=== PATIENT | male | born 1935 | race Caucasian/White ===

== ENCOUNTER → 2016-11-23 | Outpatient (CLI) | payer MEDICARE, BC ==
[2016-11-23 09:39] LABS: ALANINE AMINOTRANSFERASE 26 U/L (21-72); ALBUMIN 4.1 g/dL (3.5-5.0); ALKALINE PHOSPHATASE 65 U/L (38-126); ASPARTATE AMINO TRANSFERASE 19 U/L (17-59); BILIRUBIN,DIRECT 0.3 mg/dL (0.0-0.4); BILIRUBIN,TOTAL 0.7 mg/dL (0.2-1.3); CHOLESTEROL 128.49 mg/dL (0-200); Direct HDL 58 mg/dL (>40); TOTAL PROTEIN 7.2 g/dL (6.3-8.2); TRIGLYCERIDES 78 mg/dL (<150)
[2016-11-23 09:50] LABS: DIRECT LDL 51 mg/dL (<100)
== END ==
LOC: OD 08:23
PROVIDERS: ATTEND Specialist
DX: E78.4 Other hyperlipidemia (principal); I10 Essential (primary) hypertension; I34.0 Nonrheumatic mitral (valve) insufficiency; I49.49 Other premature depolarization; R01.1 Cardiac murmur, unspecified; C61 Malignant neoplasm of prostate; I48.2 Chronic atrial fibrillation; Z79.899 Other long term (current) drug therapy; Z86.73 Personal history of transient ischemic attack (TIA), and cerebral infarction without residual deficits
CPT/HCPCS: 36415; 80061; 80076

== ENCOUNTER → 2017-01-01 | Outpatient (CLI) | payer MEDICARE, BC ==
--- NOTE | 2017-01-01 14:52 | WOMENS IMAGING REPORT ---
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 LIMITATIONS: None. FINDINGS: LUMBAR SPINE: The bone mineral density (BMD) measured from L1-L4 in the AP projection correlates with a T-score of -1.2, previously -1.8, which is osteopenia as defined by the World Health Organization. HIP: The bone mineral density (BMD) measured in the left hip correlates with a T-score of -1.3, previously -1.5, which is osteopenia as defined by the World Health Organization. IMPRESSION: 1. LUMBAR SPINE: OSTEOPENIA. 2. HIP: OSTEOPENIA. COMMENT: The World Health Organization defines low BMD as follows: T-score: Normal: Greater than -1.0 Osteopenia: Between -1.0 and -2.5 Osteoporosis: Less than -2.5 without fractures Established osteoporosis: Less than -2.5 with fractures In general, you may wish to consider: Diagnosis Treatment Follow-up DEXA Normal BMD Prevention 2-3 years Osteopenia Prevention/Therapy 1-2 years Osteoporosis Therapy Yearly TECHNICAL DOCUMENTATION: JOB ID: [id number] [employer]- All Rights Reserved
== END ==
LOC: WI 13:13
PROVIDERS: ATTEND Internal Medicine
DX: M81.8 Other osteoporosis without current pathological fracture (principal)
CPT/HCPCS: 77080

== ENCOUNTER 2018-03-30 08:48 | Inpatient (IN) | payer MEDICARE, BC ==
[2018-03-30] MEDS ORDERED: IPRATROPIUM/ALBUTEROL 0.5-2.5 MG/3 ML AMPUL NEB ONE (09:23)
[2018-03-30] MEDS ORDERED: ALBUTEROL SULFATE 0.083% NEB 2.5 MG/3 ML AMPUL NEB ONE (09:24)
--- NOTE | 2018-03-30 10:00 | ER Document Report ---
ED General - General Chief Complaint: Shortness Of Breath Stated Complaint: SHORTNESS OF BREATH Time Seen by Provider: 03/30/18 09:22 TRAVEL OUTSIDE OF THE [place] IN LAST 30 DAYS: No - HPI Notes: Patient is a 83-year-old male that presents to the emergency department for chief complaint of cough and shortness of breath. Patient has dementia and history was partially provided by his nurse and . They report he has had shortness of breath with coarse tight cough for the last month. Patient had initially seen his primary care doctor and received a shot of antibiotics which his states cleared up his symptoms. His symptoms then returned and he completed a course of azithromycin 1 week ago. Patient seem to be improved until yesterday when the cough returned. Patient was also complaining of some shortness of breath yesterday and his called EMS. EMS recommended transfer to the hospital yesterday which patient was refusing. Currently he denies any shortness of breath and chest pain. I cannot obtain further information on the chest pain he had yesterday he has the is not sure. She denies any history of cardiac stenting in the past but he does have congestive heart failure which he sees Dr. Marcus for. He he denies fevers , nausea, vomiting, abdominal pain, current chest pain, numbness and weakness. Patient has been using albuterol at home 3 times daily with some improvement of his shortness of breath. He does not wear home oxygen. Past Medical History: CHF, hypertension, hyperlipidemia, COPD, dementia CAD Past Surgical History: Reviewed in chart Social History: Denies drugs alcohol and tobacco Family History: Reviewed and noncontributory for presenting illness Allergies: Reviewed, see documented allergy list. REVIEW OF SYSTEMS: CONSTITUTIONAL : No fever No chills No diaphoresis No recent illness EENT: No vision changes No congestion No sore throat CARDIOVASCULAR: chest pain No palpitations RESPIRATORY: shortness of breath cough difficulty breathing GASTROINTESTINAL: No abdominal pain No nausea No vomiting No diarrhea GENITOURINARY: No dysuria No hematuria No difficulty urinating MUSCULOSKELETAL: No back pain No leg pain No arm pain SKIN: No rashes No lesions LYMPHATIC: No swollen, enlarged glands. NEUROLOGICAL: No lightheadedness No headache No weakness No paresthesias PSYCHIATRIC: No anxiety No depression PHYSICAL EXAMINATION: Vital signs reviewed, nursing noted reviewed. GENERAL: Well-appearing, well-nourished and in no acute distress. HEAD: Atraumatic, normocephalic. EYES: Eyes appear normal, extraocular movements intact, sclera anicteric, conjunctiva are normal. ENT: nares patent, oropharynx clear without exudates. Moist mucous membranes. NECK: Normal range of motion, supple without lymphadenopathy LUNGS: Diffuse rhonchi. No accessory muscle use. No respiratory distress. HEART: Regular rate and rhythm without murmurs ABDOMEN: Soft, nontender, normoactive bowel sounds. No rebound, guarding, or rigidity. No masses appreciated. EXTREMITIES: Nontender, good range of motion, +2 pitting edema bilateral lower extremities NEUROLOGICAL: No focal neurological deficits. Moves all extremities spontaneously Motor and sensory grossly intact on exam. PSYCH: Normal mood, normal affect. SKIN: Warm, Dry, normal turgor, no rashes or lesions noted on exposed skin - Related Data Allergies/Adverse Reactions: No Known Allergies Allergy (Verified 01/31/13 00:37) Past Medical History - Social History Smoking Status: Never Smoker Family History: Reviewed & Not Pertinent - Past Medical History Cardiac Medical History: Reports: Hx Atrial Fibrillation, Hx Hypercholesterolemia, Hx Hypertension - Immunizations Hx Diphtheria, Pertussis, Tetanus Vaccination: Yes Hx Pneumococcal Vaccination: 05/07/11 Review of Systems - Review of Systems Notes: Dictated Physical Exam - Vital signs Vitals: Temp Pulse Resp BP Pulse Ox 97.4 F 95 20 151/74 H 92 03/30/18 08:50 03/30/18 08:50 03/30/18 08:50 03/30/18 08:50 03/30/18 08:50 - Notes Notes: Dictated Course - Re-evaluation Re-evalutation: 03/30/18 09:59 Vitals reviewed. Nursing notes reviewed. Patient given albuterol and DuoNeb for his shortness of breath. 03/30/18 11:32 Patient reevaluated and is feeling better after breathing treatments. Chest x- ray shows a pneumonia. He does have a normal WBC count and lactic acid and sepsis is not suspected. Patient will be started on Levaquin for his pneumonia. His troponin is 0.033 which is still negative but borderline. Patient was given aspirin for his chest pain. His EKG showed atrial fibrillation with no acute ischemic changes. Patient will be admitted to telemetry for further monitoring. Case discussed with Dr. Gomez who accepted admission. Patient is stable at time of admission. Laboratory 03/30/18 03/30/18 03/30/18 09:50 09:50 09:50 WBC 7.1 RBC 3.84 L Hgb 12.6 L Hct 37.4 L MCV 97 MCH 32.9 MCHC 33.8 RDW 14.9 H Plt Count 182 Seg Neutrophils % 75.3 Lymphocytes % 9.9 L Monocytes % 13.1 H Eosinophils % 0.9 Basophils % 0.8 Absolute Neutrophils 5.4 Absolute Lymphocytes 0.7 Absolute Monocytes 0.9 Absolute Eosinophils 0.1 Absolute Basophils 0.1 Sodium 141.4 Potassium 3.9 Chloride 105 Carbon Dioxide 26 Anion Gap 10 BUN 21 H Creatinine 0.82 Est GFR ( Amer) > 60 Est GFR (Non-Af Amer) > 60 Glucose 98 Lactic Acid Calcium 8.9 Troponin I 0.033 NT-Pro-B Natriuret Pep 1740 H 03/30/18 09:50 WBC RBC Hgb Hct MCV MCH MCHC RDW Plt Count Seg Neutrophils % Lymphocytes % Monocytes % Eosinophils % Basophils % Absolute Neutrophils Absolute Lymphocytes Absolute Monocytes Absolute Eosinophils Absolute Basophils Sodium Potassium Chloride Carbon Dioxide Anion Gap BUN Creatinine Est GFR ( Amer) Est GFR (Non-Af Amer) Glucose Lactic Acid 1.0 Calcium Troponin I NT-Pro-B Natriuret Pep Chest X-Ray 03/30/18 09:55 IMPRESSION: Massive cardiomegaly Patchy airspace disease right lower lobe atelectasis versus pneumonia - Vital Signs Vital signs: Temp Pulse Resp BP Pulse Ox 97.4 F 95 20 151/74 H 92 03/30/18 08:50 03/30/18 08:50 03/30/18 08:50 03/30/18 08:50 03/30/18 08:50 - Laboratory Result Diagrams: 03/30/18 09:50 03/30/18 09:50 Laboratory results interpreted by me: 03/30/18 03/30/18 03/30/18 09:50 09:50 09:50 RBC 3.84 L Hgb 12.6 L Hct 37.4 L RDW 14.9 H Lymphocytes % 9.9 L Monocytes % 13.1 H BUN 21 H NT-Pro-B Natriuret Pep 1740 H - EKG Interpretation by Me Additional EKG results interpreted by me: 11/24/18 11:24 Interpreted by myself 1037: Atrial fibrillation, rate 91, PVCs, left anterior fascicular block, poor R wave progression, borderline prolonged QT Discharge - Discharge Clinical Impression: Pneumonia Qualifiers: Pneumonia type: due to unspecified organism Laterality: right Lung location: lower lobe of lung Qualified Code(s): J18.1 - Lobar pneumonia, unspecified organism Chest pain Qualifiers: Chest pain type: unspecified Qualified Code(s): R07.9 - Chest pain, unspecified Condition: Stable Disposition: ADMITTED INPATIENT Admitting Provider: Hospitalist Unit Admitted: Telemetry Referrals: ANSELMO FERGUSON MD [Primary Care Provider] - Follow up as needed
[2018-03-30 10:29] LABS: ABSOLUTE BASOPHILS # (AUTO) 0.1 10^3/uL (0.0-0.2); ABSOLUTE EOSINOPHILS # (AUTO) 0.1 10^3/uL (0.0-0.6); ABSOLUTE LYMPHOCYTES (AUTO) 0.7 10^3/uL (0.5-4.7); ABSOLUTE MONOCYTES (AUTO) 0.9 10^3/uL (0.1-1.4); ABSOLUTE NEUT (AUTO) 5.4 10^3/uL (1.7-8.2); BASOPHILS % (AUTO) 0.8 % (0-2); EOSINOPHILS % (AUTO) 0.9 % (0-6); HEMATOCRIT 37.4 % (37.9-51.0); HEMOGLOBIN 12.6 g/dL (13.5-17.0); LYMPHOCYTES % (AUTO) 9.9 % (13-45); MEAN CORPUSCULAR HEMOGLOBIN 32.9 pg (27.0-33.4); MEAN CORPUSCULAR HGB CONC 33.8 g/dL (32.0-36.0); MEAN CORPUSCULAR VOLUME 97 fl (80-97); MONOCYTES % (AUTO) 13.1 % (3-13); PLATELET COUNT 182 10^3/uL (150-450); RED BLOOD COUNT 3.84 10^6/uL (4.35-5.55); RED CELL DISTRIBUTION WIDTH 14.9 % (11.5-14.0); SEGMENTED NEUTROPHILS % (AUTO) 75.3 % (42-78); TOTAL CELLS COUNTED % (AUTO) 100 %; WHITE BLOOD COUNT 7.1 10^3/uL (4.0-10.5)
[2018-03-30 10:43] LABS: ANION GAP 10 (5-19); BLOOD UREA NITROGEN 21 mg/dL (7-20); CALCIUM 8.9 mg/dL (8.4-10.2); CARBON DIOXIDE 26 mmol/L (22-30); CHLORIDE 105 mmol/L (98-107); GLUCOSE 98 mg/dL (75-110); POTASSIUM 3.9 mmol/L (3.6-5.0); SODIUM 141.4 mmol/L (137-145)
--- NOTE | 2018-03-30 10:46 | RADIOLOGY REPORT (SQ) ---
EXAM DESCRIPTION: CHEST SINGLE VIEW COMPLETED DATE/TIME: 03/30/2018 10:12 am REASON FOR STUDY: sob COMPARISON: TWO-VIEW CHEST 12/03/2013 EXAM PARAMETERS: NUMBER OF VIEWS: One view. TECHNIQUE: Single frontal radiographic view of the chest acquired. RADIATION DOSE: NA LIMITATIONS: None. FINDINGS: LUNGS AND PLEURA: Patchy airspace disease at the right lung base, atelectasis versus pneum onia. Lungs are otherwise grossly clear. No pleural effusion. No pneumothorax MEDIASTINUM AND HILAR STRUCTURES: No masses. Contour normal. HEART AND VASCULAR STRUCTURES: Massive cardiomegaly BONES: No acute findings. HARDWARE: None in the chest. OTHER: No other significant finding. IMPRESSION: Massive cardiomegaly Patchy airspace disease right lower lobe atelectasis versus pneumonia TECHNICAL DOCUMENTATION: JOB ID: [id number] [employer]- All Rights Reserved Reading location - IP/workstation name: [email or web address]
[2018-03-30 10:55] LABS: TROPONIN I 0.033 ng/mL
[2018-03-30] MEDS ORDERED: ASPIRIN 81 MG TABLET, CHEWABLE PO ONE (11:25)
[2018-03-30 11:42] LABS: ARTERIAL BLOOD BASE EXCESS 1.6 mmol/L; ARTERIAL BLOOD H2CO3 1.17 mmol/L (1.05-1.35); ARTERIAL BLOOD HCO3 25.8 mmol/L (20-24); ARTERIAL BLOOD O2 SATURATION 92.7 % (94-98); ARTERIAL BLOOD PCO2 38.9 mmHg (35-45); ARTERIAL BLOOD PH 7.44 (7.35-7.45); ARTERIAL BLOOD PO2 62.4 mmHg (80-100)
[2018-03-30 11:43] LABS: ARTERIAL BLOOD FIO2 2L
[2018-03-30] MEDS ORDERED: GUAIFENESIN SYRP 200 MG/10 ML UDC PO PRN (12:52)
[2018-03-30] MEDS ORDERED: LEVALBUTEROL HCL NEB 1.25 MG/3 ML AMPUL NEB SCH (13:00)
--- NOTE | 2018-03-30 14:02 | PDOC H&P ---
History of Present Illness Admission Date/PCP: 03/30/18 12:01 ANSELMO FERGUSON MD Patient complains of: Shortness of breath History of Present Illness: NICK LEARY is a 83 year old male past medical history of CAD, peptic ulcer disease, osteoporosis, angina, GERD, retention, hyperlipidemia, CHF, presented to ED complaining of of worsening cough and shortness of breath. Patient has dementia and history was partially provided by his nurse and . He has had shortness of breath, cough for the last month. Was seen by his PCP about 3 weeks ago and was given shots and as per he got much better. His symptoms returned and he was given 1 week dose of Z-Hima. Patient improving well until yesterday he started coughing again and was complaining of chest pain. EMS was called and patient was recommended to be taken to the hospital however he refused. On my encounter patient is resting in bed with no supplemental oxygen in no acute distress very pleasant and cooperative with physical examination unfortunately due to his underlying dementia he does not medicate very well however he is alert to person place and date. He denies cough, chest pain, shortness of breath, nausea, vomiting, abdominal or any urinary symptoms. She denies any history of cardiac stenting in the past but he does have congestive heart failure which he sees Dr. Marcus as outpatient Past Medical History Cardiac Medical History: Reports: Atrial Fibrillation, Hyperlipidema, Hypertension Social History Smoking Status: Never Smoker Hx Prescription Drug Abuse: No Family History Family History: Reviewed & Not Pertinent Parental Family History Reviewed: Yes Children Family History Reviewed: Yes Sibling(s) Family History Reviewed.: Yes Medication/Allergy Home Medications: Aspirin/Dipyridamole [Aggrenox 25 mg/200 mg Capsule SA] 1 cap.sr PO BID Diltiazem HCl [Cartia Xt] 180 mg PO DAILY 01/31/13 Ferrous Sulfate [Feosol 325 mg Tablet] 325 mg PO BID 01/31/13 Atorvastatin Calcium [Lipitor] 10 mg PO QHS 08/17/14 Fluticasone Propionate [Flonase Nasal Brunswick 50 Mcg/Brunswick 16 gm] 1 spray NASL BIDP PRN 08/17/14 Omeprazole 40 mg PO QAM 08/17/14 Multivitamin/Iron/Folic Acid [Centrum Complete Multivit Tab] 1 tab PO NOON 08/18 Albuterol Sulfate 0.63 Mg/3 Ml 0.63 mg IH [id number] PRN 03/30/18 Benzonatate [Tessalon Perle 100 mg Capsule] 100 mg PO BIDP PRN 03/30/18 Cetirizine HCl [Zyrtec] 10 mg PO NOON 03/30/18 Furosemide [Lasix 40 mg Tablet] 40 mg PO QAM 03/30/18 Guaifenesin [Mucinex] 600 mg PO Q12 03/30/18 Losartan Potassium [Cozaar 100 mg Tablet] 100 mg PO QHS 03/30/18 Metoprolol Succinate [Toprol Xl 50 mg Tab.sr] 50 mg PO NOON 03/30/18 Potassium Chloride 10 meq PO DAILY 03/30/18 Quetiapine Fumarate [Seroquel] 25 mg PO QHS 03/30/18 Allergies/Adverse Reactions: No Known Allergies Allergy (Verified 03/30/18 13:15) Review of Systems Review of Systems: As per HPI Physical Exam Vital Signs: Temp Pulse Resp BP Pulse Ox 97.4 F 95 15 141/78 H 92 03/30/18 08:50 03/30/18 08:50 03/30/18 12:06 03/30/18 12:06 03/30/18 12:06 General appearance: PRESENT: no acute distress, obese, well-developed, well- nourished Neck exam: ABSENT: carotid bruit, JVD, lymphadenopathy, thyromegaly Respiratory exam: PRESENT: crackles, decreased breath sounds, rhonchi. ABSENT: rales, wheezes Cardiovascular exam: PRESENT: RRR. ABSENT: diastolic murmur, rubs, systolic murmur GI/Abdominal exam: PRESENT: normal bowel sounds, soft. ABSENT: distended, guarding, mass, organolmegaly, rebound, tenderness Extremities exam: PRESENT: full ROM. ABSENT: calf tenderness, clubbing, pedal edema Neurological exam: PRESENT: alert, awake, oriented to person, oriented to place , CN II-XII grossly intact. ABSENT: motor sensory deficit Results Impressions: Chest X-Ray 03/30/18 09:55 IMPRESSION: Massive cardiomegaly Patchy airspace disease right lower lobe atelectasis versus pneumonia Assessment & Plan - Diagnosis (1) Pneumonia Qualifiers: Pneumonia type: due to unspecified organism Laterality: right Lung location: lower lobe of lung Qualified Code(s): J18.1 - Lobar pneumonia, unspecified organism Is this a current diagnosis for this admission?: Yes Plan: Community-acquired. CURB-651 2. Mortality 9.2% No leukocytosis or bandemia. ABG with PO2 of 62. PH 7.4. Broad-spectrum antibiotics, sputum and blood cultures. (2) Hypertension Is this a current diagnosis for this admission?: Yes Plan: Euvolemic. Restart home meds. Adjust dosage as needed. (3) CAD (coronary artery disease) Is this a current diagnosis for this admission?: No Plan: Restart antiplatelets, beta blockers, ARB. (4) History of CHF (congestive heart failure) Is this a current diagnosis for this admission?: No Plan: Not on exacerbation based on physical examination. BNP more than 1700. No recent echo available. Patient sees Angeline him on as outpatient. Continue diuretics. Monitor volume status. (5) Dementia Is this a current diagnosis for this admission?: Yes Plan: Restart home medications. Supportive cares. (6) Dyslipidemia Is this a current diagnosis for this admission?: Yes Plan: Started statins.
[2018-03-30] MEDS: HEPARIN SOD (PORCINE) 5,000 UNIT/ML 1 ML SYRINGE SUBCUT SCH ×2 (15:01→22:32)
[2018-03-30] MEDS: FERROUS SULFATE 325 MG TABLET PO SCH (17:37)
[2018-03-30] MEDS: LEVOFLOXACIN 750 MG/D5W RTU 750 MG/150 ML RTUPB IV SCH (17:44)
--- NOTE | 2018-03-30 21:42 | EKG REPORT ---
SEVERITY:- ABNORMAL ECG - ATRIAL FIBRILLATION, V-RATE 72-109 VENTRICULAR PREMATURE COMPLEX LEFT ANTERIOR FASCICULAR BLOCK BORDERLINE R WAVE PROGRESSION, ANTERIOR LEADS REPOL ABNRM SUGGESTS ISCHEMIA, LATERAL LEADS BORDERLINE PROLONGED QT INTERVAL : Confirmed by: Xena Marcus MD 30-Mar-2018 21:42:34
[2018-03-30] MEDS: ATORVASTATIN CALCIUM 10 MG TABLET PO SCH (22:32)
[2018-03-30] MEDS: GUAIFENESIN 600 MG TABLET.SA PO SCH (22:32)
[2018-03-30] MEDS: QUETIAPINE FUMARATE 25 MG TABLET PO SCH (22:32)
[2018-03-30] MEDS: FAMOTIDINE 20 MG TABLET PO SCH (22:32)
[2018-03-31] MEDS: HEPARIN SOD (PORCINE) 5,000 UNIT/ML 1 ML SYRINGE SUBCUT SCH ×3 (05:24→21:52)
[2018-03-31 05:44] LABS: MEAN CORPUSCULAR HEMOGLOBIN 33.2 pg (27.0-33.4); MEAN CORPUSCULAR HGB CONC 34.2 g/dL (32.0-36.0); MEAN CORPUSCULAR VOLUME 97 fl (80-97); PLATELET COUNT 157 10^3/uL (150-450); RED BLOOD COUNT 3.61 10^6/uL (4.35-5.55); WHITE BLOOD COUNT 5.8 10^3/uL (4.0-10.5)
[2018-03-31 05:47] LABS: ALBUMIN 3.3 g/dL (3.5-5.0); ANION GAP 11 (5-19); BLOOD UREA NITROGEN 16 mg/dL (7-20); CARBON DIOXIDE 23 mmol/L (22-30); CHLORIDE 108 mmol/L (98-107); GLUCOSE 95 mg/dL (75-110); POTASSIUM 3.8 mmol/L (3.6-5.0); SODIUM 141.8 mmol/L (137-145); TOTAL PROTEIN 6.6 g/dL (6.3-8.2)
[2018-03-31 05:48] LABS: ALANINE AMINOTRANSFERASE 16 U/L (21-72); ALKALINE PHOSPHATASE 59 U/L (38-126); ASPARTATE AMINO TRANSFERASE 19 U/L (17-59); BILIRUBIN,DIRECT 0.1 mg/dL (0.0-0.4); BILIRUBIN,TOTAL 0.7 mg/dL (0.2-1.3); CALCIUM 8.4 mg/dL (8.4-10.2)
[2018-03-31] MEDS: LOSARTAN POTASSIUM 50 MG TABLET PO SCH (09:57)
[2018-03-31] MEDS: ASPIRIN/DIPYRIDAMOLE 25-200 MG 1 CAP.SR CPMP.12HR PO SCH (09:57)
[2018-03-31] MEDS: FERROUS SULFATE 325 MG TABLET PO SCH ×2 (09:57→17:38)
[2018-03-31] MEDS: GUAIFENESIN 600 MG TABLET.SA PO SCH ×2 (09:58→21:51)
[2018-03-31] MEDS: FUROSEMIDE INJ/PF 20 MG/2 ML SDV IV SCH ×2 (09:58→21:52)
[2018-03-31] MEDS: POTASSIUM CHLORIDE 10 MEQ CAPSULE.ER PO SCH (09:58)
[2018-03-31] MEDS: FAMOTIDINE 20 MG TABLET PO SCH ×2 (09:58→21:51)
[2018-03-31] MEDS ORDERED: LEVOFLOXACIN 750 MG/D5W RTU 750 MG/150 ML RTUPB IV SCH ×3 (10:00)
[2018-03-31] MEDS ORDERED: FUROSEMIDE 40 MG TABLET PO SCH (10:00)
[2018-03-31] MEDS ORDERED: METOPROLOL SUCCINATE 25 MG TAB.SR.24H PO SCH (10:00)
--- NOTE | 2018-03-31 17:34 | PDOC PROGRESS REPORT ---
Subjective Progress Note for:: 03/31/18 Subjective:: NICK LEARY is a 83 year old male past medical history of CAD, peptic ulcer disease, osteoporosis, angina, GERD, retention, hyperlipidemia, CHF, presented to ED complaining of of worsening cough and shortness of breath. Patient has dementia and history was partially provided by his nurse and . He has had shortness of breath, cough for the last month. Was seen by his PCP about 3 weeks ago and was given shots and as per he got much better. His symptoms returned and he was given 1 week dose of Z-Hima. Patient improving well until yesterday he started coughing again and was complaining of chest pain. EMS was called and patient was recommended to be taken to the hospital however he refused. On my encounter patient is resting in bed with no supplemental oxygen in no acute distress very pleasant and cooperative with physical examination unfortunately due to his underlying dementia he does not medicate very well however he is alert to person place and date. He denies cough, chest pain, shortness of breath, nausea, vomiting, abdominal or any urinary symptoms. She denies any history of cardiac stenting in the past but he does have congestive heart failure which he sees Dr. Marcus as outpatient 03/31/2018. No acute events overnight. As per nurse overnight patient was not able to sleep very well. Probably . Patient himself is very pleasant and cooperative with physical examination denying any fever, chills, nausea, vomiting, diarrhea or any constipation. Reason For Visit: PNEUMONIA Physical Exam Vital Signs: Temp Pulse Resp BP Pulse Ox 98.2 F 93 20 181/96 H 94 03/31/18 16:16 03/31/18 16:16 03/31/18 16:16 03/31/18 16:16 03/31/18 16:16 Intake & Output 03/30/18 03/31/18 04/01/18 06:59 06:59 06:59 Intake Total 618 858 Balance 618 858 Weight 86.4 kg General appearance: PRESENT: no acute distress, well-developed, well-nourished Respiratory exam: PRESENT: crackles, rhonchi. ABSENT: rales, wheezes Cardiovascular exam: PRESENT: RRR. ABSENT: diastolic murmur, rubs, systolic murmur GI/Abdominal exam: PRESENT: normal bowel sounds, soft. ABSENT: distended, guarding, mass, organolmegaly, rebound, tenderness Neurological exam: PRESENT: alert, awake, oriented to person, oriented to place , CN II-XII grossly intact Results Laboratory Results: 03/31/18 04:51 03/31/18 04:51 03/31/18 03/31/18 04:51 04:51 WBC 5.8 RBC 3.61 L Hgb 12.0 L Hct 35.0 L MCV 97 MCH 33.2 MCHC 34.2 RDW 15.0 H Plt Count 157 Sodium 141.8 Potassium 3.8 Chloride 108 H Carbon Dioxide 23 Anion Gap 11 BUN 16 Creatinine 0.80 Est GFR ( Amer) > 60 Est GFR (Non-Af Amer) > 60 Glucose 95 Calcium 8.4 Total Bilirubin 0.7 AST 19 ALT 16 L Alkaline Phosphatase 59 Total Protein 6.6 Albumin 3.3 L Impressions: Chest X-Ray 03/30/18 09:55 IMPRESSION: Massive cardiomegaly Patchy airspace disease right lower lobe atelectasis versus pneumonia Assessment & Plan - Diagnosis (1) Pneumonia Qualifiers: Pneumonia type: due to unspecified organism Laterality: right Lung location: lower lobe of lung Qualified Code(s): J18.1 - Lobar pneumonia, unspecified organism Is this a current diagnosis for this admission?: Yes Plan: Community-acquired. CURB-651 2. Mortality 9.2% No leukocytosis or bandemia. ABG with PO2 of 62. PH 7.4. Day 2 of levofloxacin. Blood cultures negative so far. Labs and vitals are stable however patient is clinically still having rhonchi and crackles. Patient will benefit another day of hospitalization. DC home tomorrow. (2) Hypertension Is this a current diagnosis for this admission?: Yes Plan: Not optimized. Restart home meds. Switch Lasix p.o. to IV twice daily. Restart home meds. Adjust dosage as needed. (3) CAD (coronary artery disease) Is this a current diagnosis for this admission?: No Plan: Restart antiplatelets, beta blockers, ARB. (4) History of CHF (congestive heart failure) Is this a current diagnosis for this admission?: No Plan: Not on exacerbation based on physical examination. BNP more than 1700. No recent echo available. Patient sees Angeline him on as outpatient. Continue diuretics. Monitor volume status. (5) Dementia Is this a current diagnosis for this admission?: Yes Plan: Restart home medications. Supportive cares. (6) Dyslipidemia Is this a current diagnosis for this admission?: Yes Plan: Started statins.
[2018-03-31] MEDS: LEVOFLOXACIN 750 MG/D5W RTU 750 MG/150 ML RTUPB IV SCH (17:38)
[2018-03-31] MEDS ORDERED: METOPROLOL TARTRATE 25 MG TABLET PO ONE (17:45)
[2018-03-31] MEDS: ATORVASTATIN CALCIUM 10 MG TABLET PO SCH (21:51)
[2018-03-31] MEDS: QUETIAPINE FUMARATE 25 MG TABLET PO SCH (21:51)
[2018-04-01 04:44] LABS: ABSOLUTE BASOPHILS # (AUTO) 0.1 10^3/uL (0.0-0.2); ABSOLUTE EOSINOPHILS # (AUTO) 0.1 10^3/uL (0.0-0.6); ABSOLUTE LYMPHOCYTES (AUTO) 0.9 10^3/uL (0.5-4.7); ABSOLUTE MONOCYTES (AUTO) 0.7 10^3/uL (0.1-1.4); ABSOLUTE NEUT (AUTO) 5.1 10^3/uL (1.7-8.2); BASOPHILS % (AUTO) 0.9 % (0-2); EOSINOPHILS % (AUTO) 1.5 % (0-6); HEMATOCRIT 37.8 % (37.9-51.0); HEMOGLOBIN 12.9 g/dL (13.5-17.0); LYMPHOCYTES % (AUTO) 12.6 % (13-45); MEAN CORPUSCULAR HEMOGLOBIN 33.3 pg (27.0-33.4); MEAN CORPUSCULAR VOLUME 98 fl (80-97); MONOCYTES % (AUTO) 10.6 % (3-13); PLATELET COUNT 188 10^3/uL (150-450); RED BLOOD COUNT 3.86 10^6/uL (4.35-5.55); RED CELL DISTRIBUTION WIDTH 14.9 % (11.5-14.0); SEGMENTED NEUTROPHILS % (AUTO) 74.4 % (42-78); TOTAL CELLS COUNTED % (AUTO) 100 %; WHITE BLOOD COUNT 6.9 10^3/uL (4.0-10.5)
[2018-04-01 05:03] LABS: ALANINE AMINOTRANSFERASE 18 U/L (21-72); ALBUMIN 3.6 g/dL (3.5-5.0); ALKALINE PHOSPHATASE 66 U/L (38-126); ANION GAP 13 (5-19); ASPARTATE AMINO TRANSFERASE 22 U/L (17-59); BILIRUBIN,DIRECT 0.2 mg/dL (0.0-0.4); BLOOD UREA NITROGEN 17 mg/dL (7-20); CALCIUM 8.7 mg/dL (8.4-10.2); CARBON DIOXIDE 23 mmol/L (22-30); CHLORIDE 107 mmol/L (98-107); GLUCOSE 101 mg/dL (75-110); POTASSIUM 3.7 mmol/L (3.6-5.0); SODIUM 142.8 mmol/L (137-145); TOTAL PROTEIN 7.1 g/dL (6.3-8.2)
[2018-04-01] MEDS: HEPARIN SOD (PORCINE) 5,000 UNIT/ML 1 ML SYRINGE SUBCUT SCH ×3 (06:47→21:38)
--- NOTE | 2018-04-01 08:54 | PDOC PROGRESS REPORT ---
Subjective Progress Note for:: 04/01/18 Subjective:: The patient states to feel slightly better. He feels very warm. He is probably febrile and sweating. He does have a wet productive cough. Reason For Visit: PNEUMONIA Physical Exam Vital Signs: Temp Pulse Resp BP Pulse Ox 98.3 F 86 15 147/74 H 91 L 04/01/18 03:40 04/01/18 03:40 04/01/18 03:40 04/01/18 03:40 04/01/18 03:40 Intake & Output 03/31/18 04/01/18 04/02/18 06:59 06:59 06:59 Intake Total 618 1674 Balance 618 1674 Weight 86.4 kg 85.3 kg General appearance: PRESENT: mild distress Head exam: PRESENT: atraumatic Eye exam: PRESENT: conjunctiva pink Neck exam: PRESENT: carotid bruit. ABSENT: JVD Respiratory exam: PRESENT: crackles, rhonchi, wheezes Cardiovascular exam: PRESENT: irregular rhythm, +S1, +S2 GI/Abdominal exam: PRESENT: normal bowel sounds, soft Extremities exam: PRESENT: pedal edema Neurological exam: PRESENT: alert, awake Results Laboratory Results: 04/01/18 03:17 04/01/18 03:17 04/01/18 04/01/18 03:17 03:17 WBC 6.9 RBC 3.86 L Hgb 12.9 L Hct 37.8 L MCV 98 H MCH 33.3 MCHC 34.0 RDW 14.9 H Plt Count 188 Seg Neutrophils % 74.4 Lymphocytes % 12.6 L Monocytes % 10.6 Eosinophils % 1.5 Basophils % 0.9 Absolute Neutrophils 5.1 Absolute Lymphocytes 0.9 Absolute Monocytes 0.7 Absolute Eosinophils 0.1 Absolute Basophils 0.1 Sodium 142.8 Potassium 3.7 Chloride 107 Carbon Dioxide 23 Anion Gap 13 BUN 17 Creatinine 0.82 Est GFR ( Amer) > 60 Est GFR (Non-Af Amer) > 60 Glucose 101 Calcium 8.7 Total Bilirubin 1.0 AST 22 ALT 18 L Alkaline Phosphatase 66 Total Protein 7.1 Albumin 3.6 Impressions: Chest X-Ray 03/30/18 09:55 IMPRESSION: Massive cardiomegaly Patchy airspace disease right lower lobe atelectasis versus pneumonia Assessment & Plan - Diagnosis (1) Atrial fibrillation Qualifiers: Atrial fibrillation type: chronic Qualified Code(s): I48.2 - Chronic atrial fibrillation Is this a current diagnosis for this admission?: Yes Plan: We will increase Lopressor to 50 mg twice a day (2) Community acquired pneumonia Is this a current diagnosis for this admission?: Yes Plan: We will continue with Levaquin and add Rocephin (3) CAD (coronary artery disease) Is this a current diagnosis for this admission?: Yes Plan: We will adjust medications (4) Dementia Is this a current diagnosis for this admission?: Yes Plan: Continue current treatment (5) Pneumonia Qualifiers: Pneumonia type: due to unspecified organism Laterality: right Lung location: lower lobe of lung Qualified Code(s): J18.1 - Lobar pneumonia, unspecified organism Is this a current diagnosis for this admission?: Yes Plan: Continue current treatment (6) Chronic systolic heart failure Is this a current diagnosis for this admission?: Yes Plan: We will increase diuretics
[2018-04-01] MEDS ORDERED: FUROSEMIDE INJ/PF 20 MG/2 ML SDV IV SCH (08:56)
[2018-04-01] MEDS ORDERED: CEFTRIAXONE 1 GM/D5W RTU 50 ML IV SCH (10:00)
[2018-04-01] MEDS: ASPIRIN/DIPYRIDAMOLE 25-200 MG 1 CAP.SR CPMP.12HR PO SCH (10:34)
[2018-04-01] MEDS: FERROUS SULFATE 325 MG TABLET PO SCH ×2 (10:34→17:36)
[2018-04-01] MEDS: CEFTRIAXONE SODIUM 1,000 MG in DEXTROSE 5%-WATER 50 ML IV SCH (10:34)
[2018-04-01] MEDS: LOSARTAN POTASSIUM 50 MG TABLET PO SCH (10:35)
[2018-04-01] MEDS: POTASSIUM CHLORIDE 10 MEQ CAPSULE.ER PO SCH (10:37)
[2018-04-01] MEDS: GUAIFENESIN 600 MG TABLET.SA PO SCH ×2 (10:37→21:38)
[2018-04-01] MEDS: FAMOTIDINE 20 MG TABLET PO SCH ×2 (10:37→21:37)
[2018-04-01] MEDS: FUROSEMIDE INJ/PF 40 MG/4 ML SDV IV SCH ×2 (10:42→21:37)
[2018-04-01] MEDS: CETIRIZINE 10 MG TABLET PO SCH (10:42)
[2018-04-01] MEDS: METOPROLOL TARTRATE 25 MG TABLET PO SCH ×2 (10:43→21:37)
[2018-04-01] MEDS: LEVOFLOXACIN 500 MG TABLET PO SCH (17:34)
[2018-04-01] MEDS: ATORVASTATIN CALCIUM 10 MG TABLET PO SCH (21:37)
[2018-04-01] MEDS: QUETIAPINE FUMARATE 25 MG TABLET PO SCH (21:38)
[2018-04-02 01:15] LABS: ALANINE AMINOTRANSFERASE 21 U/L (21-72); ALBUMIN 3.5 g/dL (3.5-5.0); ALKALINE PHOSPHATASE 57 U/L (38-126); ANION GAP 11 (5-19); ASPARTATE AMINO TRANSFERASE 26 U/L (17-59); BILIRUBIN,DIRECT 0.4 mg/dL (0.0-0.4); BILIRUBIN,TOTAL 0.8 mg/dL (0.2-1.3); BLOOD UREA NITROGEN 27 mg/dL (7-20); CALCIUM 9.1 mg/dL (8.4-10.2); CARBON DIOXIDE 25 mmol/L (22-30); CHLORIDE 104 mmol/L (98-107); GLUCOSE 108 mg/dL (75-110); PHOSPHORUS 4.2 mg/dL (2.5-4.5); POTASSIUM 3.5 mmol/L (3.6-5.0); SODIUM 140.4 mmol/L (137-145)
[2018-04-02] MEDS: HEPARIN SOD (PORCINE) 5,000 UNIT/ML 1 ML SYRINGE SUBCUT SCH ×3 (05:31→21:24)
--- NOTE | 2018-04-02 08:19 | PDOC PROGRESS REPORT ---
Subjective Progress Note for:: 04/02/18 Subjective:: The patient appears to be slightly better. He is still having some cough. He did have an irregular heartbeat during the night but was symptomatic. He has been given some potassium. His blood pressure and heart rate are well controlled this morning. Reason For Visit: COMMUNITY-ACQUIRED PNEUMONIA Physical Exam Vital Signs: Temp Pulse Resp BP Pulse Ox 99.1 F 92 19 146/80 H 91 L 04/02/18 03:55 04/02/18 07:00 04/02/18 03:55 04/02/18 03:55 04/02/18 03:55 Intake & Output 04/01/18 04/02/18 04/03/18 06:59 06:59 06:59 Intake Total 770 Balance 770 Weight 86.1 kg General appearance: PRESENT: mild distress Head exam: PRESENT: atraumatic Eye exam: PRESENT: conjunctiva pink Neck exam: PRESENT: carotid bruit. ABSENT: JVD Respiratory exam: PRESENT: rhonchi Cardiovascular exam: PRESENT: irregular rhythm, +S1, +S2 GI/Abdominal exam: PRESENT: normal bowel sounds, soft Extremities exam: PRESENT: tenderness Musculoskeletal exam: PRESENT: tenderness Neurological exam: PRESENT: alert, awake Results Laboratory Results: 04/01/18 23:36 04/01/18 23:36 Sodium 140.4 Potassium 3.5 L Chloride 104 Carbon Dioxide 25 Anion Gap 11 BUN 27 H Creatinine 1.06 Est GFR ( Amer) > 60 Est GFR (Non-Af Amer) > 60 Glucose 108 Calcium 9.1 Phosphorus 4.2 Magnesium 2.0 Total Bilirubin 0.8 AST 26 ALT 21 Alkaline Phosphatase 57 Total Protein 7.0 Albumin 3.5 Impressions: Chest X-Ray 03/30/18 09:55 IMPRESSION: Massive cardiomegaly Patchy airspace disease right lower lobe atelectasis versus pneumonia Assessment & Plan - Diagnosis (1) Atrial fibrillation Qualifiers: Atrial fibrillation type: chronic Qualified Code(s): I48.2 - Chronic atrial fibrillation Is this a current diagnosis for this admission?: Yes Plan: We will increase Lopressor to 50 mg twice a day (2) Community acquired pneumonia Is this a current diagnosis for this admission?: Yes Plan: We will continue with Levaquin and add Rocephin (3) CAD (coronary artery disease) Is this a current diagnosis for this admission?: Yes Plan: We will adjust medications (4) Dementia Is this a current diagnosis for this admission?: Yes Plan: Continue current treatment (5) Pneumonia Qualifiers: Pneumonia type: due to unspecified organism Laterality: right Lung location: lower lobe of lung Qualified Code(s): J18.1 - Lobar pneumonia, unspecified organism Is this a current diagnosis for this admission?: Yes (6) Chronic systolic heart failure Is this a current diagnosis for this admission?: Yes Plan: We will continue diuretics and add some potassium
[2018-04-02] MEDS ORDERED: POTASSIUM CHLORIDE 10 MEQ CAPSULE.ER PO ONE (08:30)
[2018-04-02] MEDS: CEFTRIAXONE SODIUM 1,000 MG in DEXTROSE 5%-WATER 50 ML IV SCH (09:15)
[2018-04-02] MEDS: FUROSEMIDE INJ/PF 40 MG/4 ML SDV IV SCH ×2 (09:16→21:24)
[2018-04-02] MEDS: ASPIRIN/DIPYRIDAMOLE 25-200 MG 1 CAP.SR CPMP.12HR PO SCH (09:18)
[2018-04-02] MEDS: POTASSIUM CHLORIDE 10 MEQ CAPSULE.ER PO SCH ×2 (09:18→21:24)
[2018-04-02] MEDS: CETIRIZINE 10 MG TABLET PO SCH (09:19)
[2018-04-02] MEDS: FERROUS SULFATE 325 MG TABLET PO SCH ×2 (09:19→17:13)
[2018-04-02] MEDS: METOPROLOL TARTRATE 25 MG TABLET PO SCH ×2 (09:19→21:25)
[2018-04-02] MEDS: GUAIFENESIN 600 MG TABLET.SA PO SCH ×2 (09:20→21:25)
[2018-04-02] MEDS: FAMOTIDINE 20 MG TABLET PO SCH ×2 (09:20→21:25)
[2018-04-02] MEDS: LOSARTAN POTASSIUM 50 MG TABLET PO SCH (09:20)
[2018-04-02] MEDS ORDERED: SCOPOLAMINE HYDROBROMIDE 1.5 MG PATCH.TD72 TD SCH (10:00)
[2018-04-02] MEDS: LEVOFLOXACIN 500 MG TABLET PO SCH (17:14)
[2018-04-02] MEDS: ATORVASTATIN CALCIUM 10 MG TABLET PO SCH (21:25)
[2018-04-02] MEDS: QUETIAPINE FUMARATE 25 MG TABLET PO SCH (21:25)
[2018-04-03] MEDS: HEPARIN SOD (PORCINE) 5,000 UNIT/ML 1 ML SYRINGE SUBCUT SCH ×3 (05:21→21:45)
[2018-04-03 07:15] LABS: ABSOLUTE BASOPHILS # (AUTO) 0.1 10^3/uL (0.0-0.2); ABSOLUTE EOSINOPHILS # (AUTO) 0.2 10^3/uL (0.0-0.6); ABSOLUTE LYMPHOCYTES (AUTO) 1.1 10^3/uL (0.5-4.7); ABSOLUTE MONOCYTES (AUTO) 0.8 10^3/uL (0.1-1.4); ABSOLUTE NEUT (AUTO) 4.5 10^3/uL (1.7-8.2); EOSINOPHILS % (AUTO) 2.6 % (0-6); HEMOGLOBIN 13.4 g/dL (13.5-17.0); LYMPHOCYTES % (AUTO) 16.1 % (13-45); MEAN CORPUSCULAR HEMOGLOBIN 33.1 pg (27.0-33.4); MEAN CORPUSCULAR HGB CONC 34.4 g/dL (32.0-36.0); MEAN CORPUSCULAR VOLUME 96 fl (80-97); MONOCYTES % (AUTO) 12.6 % (3-13); PLATELET COUNT 195 10^3/uL (150-450); RED BLOOD COUNT 4.05 10^6/uL (4.35-5.55); RED CELL DISTRIBUTION WIDTH 14.7 % (11.5-14.0); SEGMENTED NEUTROPHILS % (AUTO) 67.7 % (42-78); TOTAL CELLS COUNTED % (AUTO) 100 %; WHITE BLOOD COUNT 6.7 10^3/uL (4.0-10.5)
[2018-04-03 07:34] LABS: ALANINE AMINOTRANSFERASE 26 U/L (21-72); ALBUMIN 3.6 g/dL (3.5-5.0); ALKALINE PHOSPHATASE 61 U/L (38-126); ANION GAP 10 (5-19); ASPARTATE AMINO TRANSFERASE 27 U/L (17-59); BILIRUBIN,DIRECT 0.3 mg/dL (0.0-0.4); BILIRUBIN,TOTAL 0.7 mg/dL (0.2-1.3); BLOOD UREA NITROGEN 28 mg/dL (7-20); CALCIUM 9.1 mg/dL (8.4-10.2); CARBON DIOXIDE 29 mmol/L (22-30); CHLORIDE 104 mmol/L (98-107); GLUCOSE 100 mg/dL (75-110); POTASSIUM 4.1 mmol/L (3.6-5.0); SODIUM 143.4 mmol/L (137-145)
--- NOTE | 2018-04-03 08:27 | PDOC PROGRESS REPORT ---
Subjective Progress Note for:: 04/03/18 Subjective:: The patient states to feel better. He still has some mild residual cough. He denies any fever or chills. His secretions are much better controlled with scopolamine patch Reason For Visit: COMMUNITY-ACQUIRED PNEUMONIA Physical Exam Vital Signs: Temp Pulse Resp BP Pulse Ox 97.8 F 97 18 150/83 H 94 04/03/18 04:20 04/03/18 07:00 04/03/18 04:20 04/03/18 04:20 04/03/18 04:20 Intake & Output 04/02/18 04/03/18 04/04/18 06:59 06:59 06:59 Intake Total 770 600 Balance 770 600 Weight 86.1 kg 91 kg General appearance: PRESENT: mild distress Head exam: PRESENT: atraumatic Eye exam: PRESENT: conjunctiva pink Mouth exam: PRESENT: moist Neck exam: PRESENT: carotid bruit. ABSENT: JVD Respiratory exam: PRESENT: rhonchi. ABSENT: rales Cardiovascular exam: PRESENT: irregular rhythm, +S1, +S2 GI/Abdominal exam: PRESENT: normal bowel sounds, soft Extremities exam: PRESENT: tenderness Musculoskeletal exam: PRESENT: tenderness Neurological exam: PRESENT: alert, awake Results Laboratory Results: 04/03/18 06:00 04/03/18 06:00 04/03/18 04/03/18 06:00 06:00 WBC 6.7 RBC 4.05 L Hgb 13.4 L Hct 39.0 MCV 96 MCH 33.1 MCHC 34.4 RDW 14.7 H Plt Count 195 Seg Neutrophils % 67.7 Lymphocytes % 16.1 Monocytes % 12.6 Eosinophils % 2.6 Basophils % 1.0 Absolute Neutrophils 4.5 Absolute Lymphocytes 1.1 Absolute Monocytes 0.8 Absolute Eosinophils 0.2 Absolute Basophils 0.1 Sodium 143.4 Potassium 4.1 Chloride 104 Carbon Dioxide 29 Anion Gap 10 BUN 28 H Creatinine 1.06 Est GFR ( Amer) > 60 Est GFR (Non-Af Amer) > 60 Glucose 100 Calcium 9.1 Magnesium 2.0 Total Bilirubin 0.7 AST 27 ALT 26 Alkaline Phosphatase 61 Total Protein 7.0 Albumin 3.6 Impressions: Chest X-Ray 03/30/18 09:55 IMPRESSION: Massive cardiomegaly Patchy airspace disease right lower lobe atelectasis versus pneumonia Assessment & Plan - Diagnosis (1) Atrial fibrillation Qualifiers: Atrial fibrillation type: chronic Qualified Code(s): I48.2 - Chronic atrial fibrillation Is this a current diagnosis for this admission?: Yes Plan: We will increase metoprolol to 50 every 12 (2) Community acquired pneumonia Is this a current diagnosis for this admission?: Yes Plan: Will stop the ceftriaxone and continue with Levaquin (3) CAD (coronary artery disease) Is this a current diagnosis for this admission?: Yes Plan: We will adjust medications (4) Dementia Is this a current diagnosis for this admission?: Yes Plan: Continue current treatment (5) Pneumonia Qualifiers: Pneumonia type: due to unspecified organism Laterality: right Lung location: lower lobe of lung Qualified Code(s): J18.1 - Lobar pneumonia, unspecified organism Is this a current diagnosis for this admission?: Yes (6) Chronic systolic heart failure Is this a current diagnosis for this admission?: Yes Plan: Improved we will decrease the diuretics.
[2018-04-03] MEDS: METOPROLOL TARTRATE 25 MG TABLET PO SCH ×2 (09:45→21:46)
[2018-04-03] MEDS: LOSARTAN POTASSIUM 50 MG TABLET PO SCH (09:45)
[2018-04-03] MEDS: FUROSEMIDE 40 MG TABLET PO SCH (09:45)
[2018-04-03] MEDS: FERROUS SULFATE 325 MG TABLET PO SCH ×2 (09:45→17:12)
[2018-04-03] MEDS: ASPIRIN/DIPYRIDAMOLE 25-200 MG 1 CAP.SR CPMP.12HR PO SCH (09:45)
[2018-04-03] MEDS: CETIRIZINE 10 MG TABLET PO SCH (09:45)
[2018-04-03] MEDS: GUAIFENESIN 600 MG TABLET.SA PO SCH ×2 (09:45→21:46)
[2018-04-03] MEDS: POTASSIUM CHLORIDE 10 MEQ CAPSULE.ER PO SCH ×2 (09:45→21:46)
[2018-04-03] MEDS: LEVOFLOXACIN 500 MG TABLET PO SCH (17:12)
[2018-04-03] MEDS: ATORVASTATIN CALCIUM 10 MG TABLET PO SCH (21:45)
[2018-04-03] MEDS: QUETIAPINE FUMARATE 25 MG TABLET PO SCH (21:46)
[2018-04-04] MEDS: HEPARIN SOD (PORCINE) 5,000 UNIT/ML 1 ML SYRINGE SUBCUT SCH ×2 (05:45→13:43)
[2018-04-04] MEDS: FERROUS SULFATE 325 MG TABLET PO SCH (08:29)
[2018-04-04] MEDS: ASPIRIN/DIPYRIDAMOLE 25-200 MG 1 CAP.SR CPMP.12HR PO SCH (09:26)
[2018-04-04] MEDS: CETIRIZINE 10 MG TABLET PO SCH (09:26)
[2018-04-04] MEDS: FUROSEMIDE 40 MG TABLET PO SCH (09:26)
[2018-04-04] MEDS: LOSARTAN POTASSIUM 50 MG TABLET PO SCH (09:26)
[2018-04-04] MEDS: POTASSIUM CHLORIDE 10 MEQ CAPSULE.ER PO SCH (09:26)
[2018-04-04] MEDS: GUAIFENESIN 600 MG TABLET.SA PO SCH (09:27)
[2018-04-04] MEDS: METOPROLOL TARTRATE 25 MG TABLET PO SCH (09:27)
--- NOTE | 2018-04-04 11:39 | PDOC DISCHARGE SUMMARY ---
General - Admit/Disc Date/PCP Admission Date/Primary Care Provider: 04/01/18 08:54 ANSELMO FERGUSON MD Discharge Date: 04/04/18 - Discharge Diagnosis (1) Atrial fibrillation Is this a current diagnosis for this admission?: Yes (2) Community acquired pneumonia Is this a current diagnosis for this admission?: Yes Summary: Continue Levaquin for 5 more days (3) CAD (coronary artery disease) Is this a current diagnosis for this admission?: Yes Summary: Continue current meds (4) Dementia Is this a current diagnosis for this admission?: Yes Summary: Continue current medications (5) Pneumonia Is this a current diagnosis for this admission?: Yes (6) Chronic systolic heart failure Is this a current diagnosis for this admission?: Yes Summary: Continue current medications. Continue DASH diet - Additional Information Resuscitation Status: Full Code Discharge Diet: Cardiac Discharge Activity: Activity As Tolerated Prescriptions: Scopolamine Hydrobromide [Transderm-Scop 1.5 mg Patch] 1 each TD Q3DAYS #4 patch.[id number] Levofloxacin [Levaquin 500 mg Tablet] 500 mg PO QPM #5 tablet Home Medications: Aspirin/Dipyridamole [Aggrenox 25 mg/200 mg Capsule SA] 1 cap.sr PO BID Diltiazem HCl [Cartia Xt] 180 mg PO DAILY 01/31/13 Ferrous Sulfate [Feosol 325 mg Tablet] 325 mg PO BID 01/31/13 Atorvastatin Calcium [Lipitor] 10 mg PO QHS 08/17/14 Fluticasone Propionate [Flonase Nasal [place] 50 Mcg/[place] 16 gm] 1 spray NASL BIDP PRN 08/17/14 Omeprazole 40 mg PO QAM 08/17/14 Multivitamin/Iron/Folic Acid [Centrum Complete Multivit Tab] 1 tab PO NOON 08/18 Albuterol Sulfate 0.63 Mg/3 Ml 0.63 mg IH [id number] PRN 03/30/18 Benzonatate [Tessalon [place] 100 mg Capsule] 100 mg PO BIDP PRN 03/30/18 Cetirizine HCl [Zyrtec] 10 mg PO NOON 03/30/18 Furosemide [Lasix 40 mg Tablet] 40 mg PO QAM 03/30/18 Guaifenesin [Mucinex] 600 mg PO Q12 03/30/18 Losartan Potassium [Cozaar 100 mg Tablet] 100 mg PO QHS 03/30/18 Metoprolol Succinate [Toprol Xl 50 mg Tab.sr] 50 mg PO NOON 03/30/18 Potassium Chloride 10 meq PO DAILY 03/30/18 Quetiapine Fumarate [Seroquel] 25 mg PO QHS 03/30/18 Levofloxacin [Levaquin 500 mg Tablet] 500 mg PO QPM #5 tablet 04/04/18 Scopolamine Hydrobromide [Transderm-Scop 1.5 mg Patch] 1 each TD Q3DAYS #4 patch.[id number] 04/04/18 History of Present Illness History of Present Illness: NICK LEARY is a 83 year old male Hospital Course Hospital Course: The patient did well with IV antibiotics and p.o. antibiotics. He had significant amount of diureses. He was eventually weaned off the IV Lasix and antibiotics. He did quite well. Because of excessive secretions the patient was started on scopolamine patch which has helped with he is swallowing and aspiration of the saliva and postnasal drip Physical Exam Vital Signs: Temp Pulse Resp BP Pulse Ox 97.9 F 97 16 158/90 H 93 04/04/18 08:58 04/04/18 08:58 04/04/18 08:58 04/04/18 08:58 04/04/18 08:58 Intake & Output 04/03/18 04/04/18 04/05/18 06:59 06:59 06:59 Intake Total 600 1421 Balance 600 1421 Weight 91 kg 92.1 kg General appearance: PRESENT: no acute distress Head exam: PRESENT: atraumatic Eye exam: PRESENT: conjunctiva pink Mouth exam: PRESENT: dry mucosa Neck exam: PRESENT: carotid bruit. ABSENT: JVD Respiratory exam: PRESENT: clear to auscultation neetu Cardiovascular exam: PRESENT: irregular rhythm, +S1, +S2 GI/Abdominal exam: PRESENT: normal bowel sounds, soft Extremities exam: PRESENT: tenderness Musculoskeletal exam: PRESENT: tenderness Neurological exam: PRESENT: awake Results Laboratory Results: 04/03/18 06:00 04/03/18 06:00 Impressions: Chest X-Ray 03/30/18 09:55 IMPRESSION: Massive cardiomegaly Patchy airspace disease right lower lobe atelectasis versus pneumonia Qualifiers - * PATIENT BEING DISCHARGED WITH ANY OF THE FOLLOWING DIAGNOSIS: No
[2018-04-04 13:37] VITALS: BP 159/80
== END 2018-04-04 14:15 | disposition home health service (06) | DRG 194 ==
LOC: ER 08:48 → INTOOBSV 12:01 → EH 12:01 → 5 12:58 → OBSVTOIN 04-01 08:54
PROVIDERS: ADMIT Internal Medicine; ATTEND Internal Medicine
DX: J18.9 Pneumonia, unspecified organism (principal); I50.22 Chronic systolic (congestive) heart failure; I48.2 Chronic atrial fibrillation; I11.0 Hypertensive heart disease with heart failure; J44.9 Chronic obstructive pulmonary disease, unspecified; I44.4 Left anterior fascicular block; I25.10 Atherosclerotic heart disease of native coronary artery without angina pectoris; E78.5 Hyperlipidemia, unspecified; F03.90 Unspecified dementia, unspecified severity, without behavioral disturbance, psychotic disturbance, mood disturbance, and anxiety
CPT/HCPCS: 36415; 36600; 71045; 80048; 80053; 82803; 83605; 83735; 83880; 84100; 84484; 85025; 85027; 87040; 87070; 87205; 93005; 93010; 94640; 94667; 99285; G0378; G8978-GP; G8979-GP; J0696; J1644; J1940; J1956; J3490; J7620